=== PATIENT | female | born 2000 | race Caucasian/White ===

== ENCOUNTER 2020-05-23 03:57 | Emergency (ER) | payer BC ==
--- OUTSIDE RECORDS SUMMARY | 2020-05-23 03:59 | XMS REPORT | Summary of Care ---
:2000 Author Organization [address] [address] Care Team Providers Name Role Phone Pcp, Patient Does Not Have A Primary Care Provider +1-000-00 0-0000 Reason for Visit Reason Comments Rx Concern/Question Encounter Details Date Type Department Care Team Description 04/30/2020 Telephone [facility] Kathleen Bloom RD Rx Concern/Question Specialties [address] [facility] [phone] [address] [place] [phone] Allergies No Known Allergiesdocumented as of this encounter (statuses as of 04/30/2020) Medications Medication Sig Dispensed Refills Start Date End Date Status KUVAN 100 mg 0 08/17/2015 Active disintegrating tablet KUVAN 500 mg PwPk DISSOLVE 2 30 Packet 10 08/30/2018 Active PACKETS (1000MG) IN 4-8 OZ WATER OR APPLE JUICE. TAKE BY MOUTH ONCE DAILY WITH FOOD. TOTAL DAILY DOSAGE (WITH 100MG PACKETS) OF 1 KUVAN 100 mg PwPk DISSOLVE 2-100MG 60 Packet 10 08/30/2018 Active PACKETS AND 2-500MG PACKETS ([id number]) IN 4-8 OZ WATER OR APPLE JUICE. TAKE BY MOUTH ONCE DAILY WITH FOOD. documented as of this encounter (statuses as of 04/30/2020) Active Problems Not on filedocumented as of this encounter (statuses as of 04/30/2020) Social History Tobacco Use Types Packs/Day Years Used Date Never Assessed Sex Assigned at Date Recorded Not on file documented as of this encounter Last Filed Vital Signs Not on filedocumented in this encounter Miscellaneous Notes Telephone Encounter - Kathleen Lipscomb RD - 04/30/2020 4:05 PM CSTReceived a call from patient's Mom inquiring about generic Kuvan. She is concerned since Aspen is so picky that she will notice subtle changes. She is asking if there is a difference in taste or consistency. I informed her that I could not say for sure but we are happy to request brand name as long as insurance allows. Communicated new Rx to her [facility]. Pt also received the sample of medical food I sent her (PKU Sphere Liquid) but hasn't tried it. Mom or Aspen will f/u if she likes it and is interested in incorporating it into her regimen. Kathleen Lipscomb MS, RD, LD Metabolic Dietitian documented in this encounter Plan of Treatment Health Maintenance Due Date Last Done Comments VARICELLA VACCINES (1 of 2 - 2-dose 2001 childhood series) MENINGOCOCCAL B VACCINES (1 of 2 - 2010 Risk Bexsero 2-dose series) HPV VACCINES (1 - 2-dose series) 09/30/2011 Depression Screening 2012 WELL CARE VISIT: 12-21 YEARS 2012 (yearly) CHLAMYDIA SCREENING 2016 DTaP,Tdap,and Td Vaccines (1 - 09/30/2019 Tdap) INFLUENZA VACCINE (#1) 2020 MENINGOCOCCAL VACCINE Aged Out No longer eligible based on patient's age to complete this topic PNEUMOCOCCAL 0-64 YEARS COMBINED Aged Out No longer eligible based on SERIES patient's age to complete this topic documented as of this encounter Results Not on filedocumented in this encounter Insurance Payer Benefit Plan Subscriber ID Effective Dates Phone Address Type / Group [facility] [id number] 2014-Nikos [phone] [address] PPO/POS [place] t 7 [id number] [place] [address] documented as of this encounter
--- OUTSIDE RECORDS SUMMARY | 2020-05-23 03:59 | XMS REPORT | Continuity of Care Document ---
:2000 Author Organization [facility] t Address [address] [place] [address] Care Team Providers Name Role Phone Vice MARIE Attending Clinician Marie Bliss MD Attending Clinician Problems This patient has no known problems. Allergies, Adverse Reactions, Alerts This patient has no known allergies or adverse reactions. Medications This patient has no known medications. Procedures This patient has no known procedures. Encounters Start End Encounter Admission Attending Care Care Encounter Source Date/Time Date/Time Type Type Clinicians Facility Department ID 2020-04-30 2020-04-30 Telephone Vice [facility] [id number] 00:00:00 00:00:00 Kathleen SPECIALTY [id number] [place] [id number] [place] [phone] [id number] 2020-04-02 2020-04-02 Telephone Cortes Bliss [facility] [id number] 00:00:00 00:00:00 W SPECIALTY [id number] [place] [id number] [place] [id number] Results This patient has no known results.
--- OUTSIDE RECORDS SUMMARY | 2020-05-23 03:59 | XMS REPORT | Summary of Care ---
:2000 Author Organization [facility] - Health Address [address] [place] [address] Care Team Providers Name Role Phone Pcp, Patient Does Not Have A Primary Care Provider +1-000-00 0-0000 Encounter Details Date Type Department Care Team Description 03/30/2020 Orders Only [facility] Doctor Unassigned, No [address] [place] [address] [address] [place] [address] Allergies No Known Allergiesdocumented as of this encounter (statuses as of 04/02/2020) Medications Medication Sig Dispensed Refills Start Date [...] 10 08/30/2018 Active PACKETS AND 2-500MG PACKETS ([id number]) IN 4-8 OZ WATER OR APPLE JUICE. TAKE BY MOUTH ONCE DAILY WITH FOOD. documented as of this encounter (statuses as of 04/02/2020) Active Problems Not on filedocumented as of this encounter (statuses as of 04/02/2020) Social History Tobacco Use Types Packs/Day Years Used Date Never Assessed Sex Assigned at Date Recorded Not on file documented as of this encounter Last Filed Vital Signs Not on filedocumented in this encounter Plan of Treatment Health [...] this topic documented as of this encounter Procedures Procedure Name Priority Date/Time Associated Diagnosis Comme nts TD LAB RESULTS ([facility]) Routine 03/30/2020 12:01 AM CDT documented in this encounter Results TD LAB RESULTS ([facility]) (03/30/2020 12:01 AM CDT) Specimen Performing Organization Address City/State/Zipcode Phone Number HIM documented in this encounter Insurance Payer Benefit Plan Subscriber ID Effective Dates Phone Address Type / Group [employer] [place] [employer] [place] [id number] 2014-Nikos [phone] [address] PPO/POS [place] t 7 [id number] [place] [address] documented as of this encounter
--- OUTSIDE RECORDS SUMMARY | 2020-05-23 03:59 | XMS REPORT | Summary of Care ---
:2000 Author Organization [facility] Address [address] [place] [address] Care Team Providers Name Role Phone Pcp, Patient Does Not Have A Primary Care Provider +1-000-00 0-0000 Reason for Visit Reason Comments Lab Results Encounter Details Date Type Department Care Team Description 04/02/2020 Telephone [facility] Pedi Specialties Cortes Bliss MD Lab Results [facility] ty [address] [facility] [address] [facility] [address] [place] [address] [place], [place] [phone] Allergies No Known Allergiesdocumented as of this [...] 10 08/30/2018 Active PACKETS AND 2-500MG PACKETS ([id number]) IN 4-8 OZ WATER OR APPLE JUICE. [...] this encounter Miscellaneous Notes Telephone Encounter - Kane Garcia LVN - 04/02/2020 3:24 PM CDTTDH lab results scanned to patient's chart. documented in this encounter Plan of Treatment [...] Dates Phone Address Type / Group BCBS [facility] [id number] 2014-Nikos [phone] [address] PPO/POS [place] t 7 [id number] [place] [address] documented as of this encounter
--- OUTSIDE RECORDS SUMMARY | 2020-05-23 03:59 | XMS REPORT | Summary of Care ---
:2000 Author Organization [facility] Address [address] [place] [address] Care Team Providers Name Role Phone Pcp, Patient Does Not Have A Primary Care Provider +1-000-00 0-0000 Reason for Visit Reason Comments Lab Results Encounter Details Date Type Department Care Team Description 04/02/2020 Telephone [facility] Pedi Specialties Cortes Bliss MD Lab Results [facility] ty [address] [facility] [address] [facility] [address] [place] [address] [place], [place] [phone] Allergies No Known Allergiesdocumented as of this encounter (statuses as of 04/03/2020) Medications Medication Sig Dispensed Refills Start Date [...] 10 08/30/2018 Active PACKETS AND 2-500MG PACKETS ([id number]) IN 4-8 OZ WATER OR APPLE JUICE. TAKE BY MOUTH ONCE DAILY WITH FOOD. documented as of this encounter (statuses as of 04/03/2020) Active Problems Not on filedocumented as of this encounter (statuses as of 04/03/2020) Social History Tobacco Use Types Packs/Day Years Used Date Never Assessed Sex Assigned at Date Recorded Not on file documented as of this encounter Last Filed Vital Signs Not on filedocumented in this encounter Miscellaneous Notes Telephone Encounter - Kathleen Lipscomb RD - 04/03/2020 11:46 AM CDTContacted patient/patient's parents to report the results of the most recent home Phe levels received from the state lab. Collection Date: 03/30/20 Phe: 1.5 mg/dL Tyrosine: 0.8 mg/dL Kathleen Lipscomb MS, RD, LD Metabolic Dietitian elephone Encounter - Kane Garcia LVN - 04/02/2020 [...] Phone Address Type / Group BC[facility] [id number] 2014-Nikos [phone] [address] PPO/POS [place] t 7 [id number] [place] [address] documented as of this encounter
[2020-05-23 04:15] LABS: Urine Blood 2+ (NEG); Urine Glucose NEGATIVE (NEG); Urine Protein 1+ (NEG); Urine Specific Gravity >1.030 (1.005-1.030); Urine pH 5.5 (5.0-7.0)
[2020-05-23] MEDS ORDERED: NA CHLORIDE 0.9% 1,000 ML ONE (04:26)
[2020-05-23] MEDS ORDERED: KETOROLAC 30 MG/ML INJ ONE (04:26)
[2020-05-23 04:27] LABS: Basophils % 0.5 % (0-1.3); Hematocrit 35.1 % (36.0-45.0); RBC Red Blood Cell Count 3.74 M/uL (3.86-4.86)
[2020-05-23] MEDS ORDERED: ONDANSETRON 4 MG/2 ML VIAL ONE (04:35)
[2020-05-23 04:46] LABS: ALT/SGPT 16 U/L (12-78); AST/SGOT 12 U/L (15-37); Alkaline Phosphatase 75 U/L (45-117); BUN Blood Urea Nitrogen 9 mg/dL (7-18); Bicarbonate 21 mmol/L (21-32); Bilirubin Direct 0.2 mg/dL (0-0.2); Bilirubin Total 0.4 mg/dL (0.2-1.0); Glucose Level 96 mg/dL (74-106); Lipase 78 U/L (73-393); Potassium 3.3 mmol/L (3.5-5.1); Protein, Total 7.5 g/dL (6.4-8.2); Sodium Level 142 mmol/L (136-145)
[2020-05-23] MEDS ORDERED: MORPHINE 4 MG/ML SYR ONE (05:00)
--- NOTE | 2020-05-23 06:46 | EDPHYS ---
Physician Documentation [facility] Name: Aspen Mills Age: 19 yrs Sex: Female : 2000 Arrival Date: 05/23/2020 Time: 03:57 Bed 13 Private MD: ED Physician Tim Valiente HPI: 05/23 05:48 This 19 yrs old Female presents to ER via Ambulatory with complaints of Flank tw4 Pain. 05:48 The patient complains of pain in the left mid back. The pain radiates. Onset: The tw4 symptoms/episode began/occurred today. Modifying factors: The symptoms are alleviated by nothing. the symptoms are aggravated by nothing. Associated signs and symptoms: The patient has no apparent associated signs or symptoms. Severity of pain: At its worst the pain was moderate in the emergency department the pain is unchanged. The patient has not experienced similar symptoms in the past. 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 - Social history:: Smoking status: Patient denies any tobacco usage or history of. ROS: 05:48 Constitutional: Negative for fever, chills, and weight loss, Eyes: Negative for injury, tw4 pain, redness, and discharge, Cardiovascular: Negative for chest pain, palpitations, and edema, Respiratory: Negative for shortness of breath, cough, wheezing, and pleuritic chest pain, Abdomen/GI: Negative for abdominal pain, nausea, vomiting, diarrhea, and constipation. 05:48 MS/Extremity: Negative for injury and deformity, Skin: Negative for injury, rash, and discoloration, Neuro: Negative for headache, weakness, numbness, tingling, and seizure. 05:48 Back: Positive for flank pain, on the left. Exam: 05:48 Constitutional: This is a well developed, well nourished patient who is awake, alert, tw4 and in no acute distress. Head/Face: Normocephalic, atraumatic. Chest/axilla: Normal chest wall appearance and motion. Nontender with no deformity. No lesions are appreciated. Cardiovascular: Regular rate and rhythm with a normal S1 and S2. No gallops, murmurs, or rubs. Normal PMI, no JVD. No pulse deficits. Respiratory: Lungs have equal breath sounds bilaterally, clear to auscultation and percussion. No rales, rhonchi or wheezes noted. No increased work of breathing, no retractions or nasal flaring. Abdomen/GI: Soft, non-tender, with normal bowel sounds. No distension or tympany. No guarding or rebound. No evidence of tenderness throughout. Skin: Warm, dry with normal turgor. Normal color with no rashes, no lesions, and no evidence of cellulitis. MS/ Extremity: Pulses equal, no cyanosis. Neurovascular intact. Full, normal range of motion. Neuro: Awake and alert, GCS 15, oriented to person, place, time, and situation. Cranial nerves II-XII grossly intact. Motor strength 5/5 in all extremities. Sensory grossly intact. Cerebellar exam normal. Normal gait. 05:48 Back: pain, that is moderate, ROM is normal, normal spinal alignment noted, CVA tenderness, that is moderate, is noted on the left. Vital Signs: 04:15 BP 125 / 82; Pulse 94; Resp 19; Temp 98.7; Pulse Ox 100% ; Weight 63.5 kg; Height 5 ft. ea 6 in. (167.64 cm); Pain 9/10; 06:09 BP 118 / 74; Pulse 92; Resp 18; Pulse Ox 100% ; Pain 2/10; ea 04:15 Body Mass Index 22.60 (63.50 kg, 167.64 cm) ea MDM: 04:05 Patient medically screened. tw4 06:46 Differential diagnosis: nephrolithiasis, pyelonephritis. Data reviewed: vital signs, tw4 nurses notes, lab test result(s), CBC, electrolytes, hepatic panel, radiologic studies, CT scan. Data interpreted: Pulse oximetry: Interpretation: normal. Counseling: I had a detailed discussion with the patient and/or guardian regarding: the historical points, exam findings, and any diagnostic results supporting the discharge/admit diagnosis, radiology results. Medication response: Toradol partially relieved the patient's pain. Medication response: morphine relieved the patient's pain. Symptoms have resolved. Response to treatment: and as a result, I will discharge patient. Special discussion: Based on the patient's Hx, exam, and Dx evaluation, there is no indication for emergent surgery or inpatient Tx. It is understood by the patient/guardian that if the Sx's persist or worsen they need to return immediately for re-evaluation. I discussed with the patient/guardian in detail that at this point there is no indication for admission to the hospital. It is understood, however, that if the symptoms persist or worsen the patient needs to return immediately for re-evaluation. 05/23 04:11 Order name: Basic Metabolic Panel; Complete Time: 04:47 05/23 04:47 Interpretation: Normal except: K 3.3; CL 113. 05/23 04:11 Order name: CBC with Diff; Complete Time: 04:47 05/23 04:47 Interpretation: Abnormal: RBC 3.74; HGB 11.9; HCT 35.1. 05/23 04:11 Order name: Hepatic Function; Complete Time: 04:47 05/23 04:47 Interpretation: Abnormal: AST 12. 05/23 04:11 Order name: Lipase; Complete Time: 04:48 05/23 04:48 Interpretation: Within normal limits: LIP 78. 05/23 04:12 Order name: Urine --Ancillary (enter results); Complete Time: 04:46 tt05/23 04:46 Interpretation: Abnormal: USPGR >1.030. 05/23 04:12 Order name: Urine Dipstick--Ancillary (enter results); Complete Time: 04:48 05/23 04:48 Interpretation: Normal except: UPROT 1+; UBLD 2+. 05/23 04:11 Order name: IV Saline Lock; Complete Time: 04:24 05/23 04:11 Order name: Labs collected and sent; Complete Time: 04:24 05/23 04:12 Order name: CT Stone Protocol Administered Medications: 04:20 Drug: TORadol 30 mg Route: IVP; Site: right antecubital; ea 04:49 Follow up: Response: No adverse reaction; Pain is unchanged, physician notified ea 04:20 Drug: NS 0.9% 1000 ml Route: IV; Rate: 1 bolus; Site: right antecubital; ea 07:04 Follow up: Response: No adverse reaction; IV Status: Completed infusion; IV Intake: ea 1000ml 04:24 Drug: Zofran (Ondansetron) 4 mg Route: IVP; Site: right antecubital; ea 06:10 Follow up: Response: No adverse reaction ea 04:49 Drug: morphine 4 mg {Note: RASS 0.} Route: IVP; Site: right antecubital; ea 06:11 Follow up: Response: No adverse reaction; Pain is decreased; RASS: Alert and Calm (0) ea Disposition: 05/23/20 06:46 Discharged to Home. Impression: Calculus of ureter. - Condition is Stable. - Discharge Instructions: Renal Colic, Kidney Stones, [id number]. - Prescriptions for Ibuprofen 800 mg Oral Tablet - take 1 tablet by ORAL route every 8 hours As needed take with food; 30 tablet. Tylenol- Codeine #3 300-30 mg Oral Tablet - take 2 tablet by ORAL route every 6 hours As needed; 30 tablet. Zofran 4 mg Oral Tablet - take 1 tablet by ORAL route every 12 hours As needed; 6 tablet. Flomax 0.4 mg Oral Capsule, Sust. Release 24 hr - take 1 capsule by ORAL route once daily 1/2 hour following the same meal each day; 30 capsule. - Medication Reconciliation Form, Thank You Letter, Antibiotic Education, Prescription Opioid Use form. - Follow up: Private Physician; When: Upon discharge from the Emergency Department; Reason: Recheck today's complaints, Continuance of care, Re-evaluation by your physician. Follow up: Domenic Mccray MD; When: Upon discharge from the Emergency Department; Reason: Recheck today's complaints, Continuance of care, Re-evaluation by your physician. Follow up: Hung Drew MD; When: Upon discharge from the Emergency Department; Reason: Recheck today's complaints, Continuance of care, Re-evaluation by your physician. - Problem is new. - Symptoms have improved. Signatures: Dispatcher [employer] Haily Chambers RN RN Tim Mcpherson MD MD tw4 Corrections: (The following items were deleted from the chart) 07:05 06:46 05/23/2020 06:46 Discharged to Home. Impression: Calculus of ureter. Condition is ea Stable. Forms are Medication Reconciliation Form, Thank You Letter, Antibiotic Education, Prescription Opioid Use. Follow up: Private Physician; When: Upon discharge from the Emergency Department; Reason: Recheck today's complaints, Continuance of care, Re-evaluation by your physician. Follow up: Domenic Mccray; When: Upon discharge from the Emergency Department; Reason: Recheck today's complaints, Continuance of care, Re-evaluation by your physician. Follow up: Hung Drew; When: Upon discharge from the Emergency Department; Reason: Recheck today's complaints, Continuance of care, Re-evaluation by your physician. Problem is new. Symptoms have improved. tw4
--- NOTE | 2020-05-23 06:46 | ER ---
Nurse's Notes [facility] Name: Aspen Mills Age: 19 yrs Sex: Female : 2000 Arrival Date: 05/23/2020 Time: 03:57 Bed 13 Private MD: Diagnosis: Calculus of ureter Presentation: 05/23 04:15 Initial Sepsis Screen: Does the patient meet any 2 criteria? No. Patient's initial ea sepsis screen is negative. Does the patient have a suspected source of infection? No. Patient's initial sepsis screen is negative. Risk Assessment: Do you want to hurt yourself or someone else? Patient reports no desire to harm self or others. Onset of symptoms was May 23, 2020. 04:15 Acuity: [place]ERE[place] 3 ea 04:15 Chief complaint: Patient states: Reports left flank pain that started about thirty ea minutes ago, pt reports pain woke her up from her sleep. Coronavirus screen: At this time, the client does not indicate any symptoms associated with coronavirus-19. 04:15 Method Of Arrival: Ambulatory ea 04:25 Ebola Screen: No symptoms or risks identified at this time. 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 - Social history:: Smoking status: Patient denies any tobacco usage or history of. Screenin:25 Abuse screen: Denies threats or abuse. Nutritional screening: No deficits noted. ea Tuberculosis screening: No symptoms or risk factors identified. Fall Risk IV access (20 points). Assessment: 04:15 General: Appears uncomfortable, Behavior is appropriate for age. General: Behavior is ea restless. Pain: Complains of pain in left flank pain. Neuro: Level of Consciousness is awake, alert, obeys commands, Oriented to person, place, time. Cardiovascular: Patient's skin is warm and dry. Respiratory: Airway is patent Respiratory effort is even, unlabored, Respiratory pattern is regular, symmetrical. : Denies burning with urination. Derm: Skin is dry, Skin is pale, Skin temperature is warm. 06:08 Reassessment: Patient and/or family updated on plan of care and expected duration. Pain ea level reassessed. Patient is alert, oriented x 3, equal unlabored respirations, skin warm/dry/pink. 07:03 Reassessment: Patient and/or family updated on plan of care and expected duration. Pain ea level reassessed. Patient is alert, oriented x 3, equal unlabored respirations, skin warm/dry/pink. Discharge instruction given to patient, verbalized the understanding of instruction. Pt left ED ambulatory tolerating well. Vital Signs: 04:15 BP 125 / 82; Pulse 94; Resp 19; Temp 98.7; Pulse Ox 100% ; Weight 63.5 kg; Height 5 ft. ea 6 in. (167.64 cm); Pain 9/10; 06:09 BP 118 / 74; Pulse 92; Resp 18; Pulse Ox 100% ; Pain 2/10; ea 04:15 Body Mass Index 22.60 (63.50 kg, 167.64 cm) ea ED Course: 03:57 Patient arrived in ED. am2 04:05 Tim Valiente MD is Attending Physician. tw4 04:18 Haily Frost RN is Primary Nurse. ea 04:20 Inserted saline lock: 20 gauge in right antecubital area, using aseptic technique. ea Blood collected. 04:25 Patient has correct armband on for positive identification. Bed in low position. Call ea light in reach. Pulse ox on. NIBP on. 04:26 Triage completed. ea 04:27 Arm band placed on right wrist. Patient placed in an exam room, on a stretcher, on ea pulse oximetry. 05:56 CT Stone Protocol In Process Unspecified. EDMS 06:45 Domenic Mccray MD is Referral Physician. tw4 06:45 Hung Drew MD is Referral Physician. tw4 06:58 IV discontinued, intact, bleeding controlled, No redness/swelling at site. Pressure ea dressing applied. 07:03 No provider procedures requiring assistance completed. ea Administered Medications: 04:20 Drug: TORadol 30 mg Route: IVP; Site: right antecubital; ea 04:49 Follow up: Response: No adverse reaction; Pain is unchanged, physician notified ea 04:20 Drug: NS 0.9% 1000 ml Route: IV; Rate: 1 bolus; Site: right antecubital; ea 07:04 Follow up: Response: No adverse reaction; IV Status: Completed infusion; IV Intake: ea 1000ml 04:24 Drug: Zofran (Ondansetron) 4 mg Route: IVP; Site: right antecubital; ea 06:10 Follow up: Response: No adverse reaction ea 04:49 Drug: morphine 4 mg {Note: RASS 0.} Route: IVP; Site: right antecubital; ea 06:11 Follow up: Response: No adverse reaction; Pain is decreased; RASS: Alert and Calm (0) ea Intake: 07:04 IV: 1000ml; Total: 1000ml. ea Outcome: 06:46 Discharge ordered by tw4 07:04 Discharged to home ambulatory, with family. ea 07:04 Condition: stable 07:04 Discharge instructions given to patient, Instructed on discharge instructions, follow up and referral plans. medication usage, Demonstrated understanding of instructions, follow-up care, medications, Prescriptions given X 4. 07:05 Patient left the ED. ea Signatures: Dispatcher [employer] Maria Antonia Sequeira Elena, RN RN Tim Mcpherson MD MD tw4 Corrections: (The following items were deleted from the chart) 06:11 06:11 Response: No adverse reaction; Pain is decreased mc bentley
--- NOTE | 2020-05-26 09:03 | RAD REPORT ---
EXAM DESCRIPTION: CT - Stone Protocol - 05/23/2020 6:46 am CLINICAL HISTORY: Acute left flank pain COMPARISON: None. TECHNIQUE: Axial unenhanced CT imaging of the abdomen and pelvis performed. Reformatted coronal and sagittal images reviewed. A dose reduction technique was utilized with automated exposure control according to patient size. FINDINGS: Clear lung bases. Heart is normal in size. Normal liver, gallbladder, spleen, pancreas, adrenal glands, and right kidney. There is a 3 mm nono bstructing left renal pelvic stone. There is mild dilatation of the left renal pelvis. AP pelvis is 1.5 cm. Minimal left perinephric edema. Mild diffuse dilatation of the left ureter secondary t o a 6 mm distal left ureteral stone. Normal caliber aorta and inferior vena cava. No retroperitoneal lymphadenopathy. Unremarkable sto mach and small bowel loops. Normal appendix is present in the right lower quadrant. Unremarkable colon. No ascites or free air. The bladder appears normal. No bladder stone. Normal uterus and ovaries. No pelvic adenopathy o r free fluid Normal lumbosacral alignment. Intact bony pelvis. Normal hips. IMPRESSION: 1. 6 mm distal left ureteral stone with mild left hydronephrosis and slight obstructiv e uropathy. Nonobstructing 3 mm left renal pelvis is also present. Electronically signed by: Catalina Adams DO 05/23/2020 6:14 AM [employer] Due to temporary technical issues with the PACS/Fluency reporting system, reports are being signed by the in house radiologist without review as a courtesy to ensure prompt reporting. The interpreting r adiologist is fully responsible for the content of the report.
[2020-05-27 13:09] VITALS: TEMP 98.7; O2SAT 100
[2020-05-27 13:10] VITALS: BP 118/74
== END 2020-05-23 07:05 | disposition home or self-care (01) ==
LOC: ER 03:57
DX: N20.1 Calculus of ureter (principal)
CPT/HCPCS: 96361; 85025; 80048; 36415; 81025; 80076; 81003; 83690; 76377; 74176; 96375; 96374; 99284; J7030; J2405

== ENCOUNTER 2020-06-29 23:21 | Emergency (ER) | payer BC ==
--- OUTSIDE RECORDS SUMMARY | 2020-06-29 23:23 | XMS REPORT | Continuity of Care Document ---
:2000 Author Organization [facility] t Address [address] [place] [address] Care Team Providers Name Role Phone Vice [...] Facility Department ID 2020-04-30 2020-04-30 Telephone [facility] [id number] 00:00:00 00:00:00 Kathleen [facility] [id number] [place] [id number] [place] [id number] 2020-04-02 2020-04-02 Telephone [facility] [id number] 00:00:00 00:00:00 Marie SPECIAL[facility] [id number] [place] [id number] [place] [id number] Results This patient has no known results.
[2020-06-30 00:46] LABS: Bilirubin Direct 0.2 mg/dL (0-0.2); Bilirubin Total 0.5 mg/dL (0.2-1.0); Potassium 3.5 mmol/L (3.5-5.1); Protein, Total 7.7 g/dL (6.4-8.2)
[2020-06-30] MEDS ORDERED: NA CHLORIDE 0.9% 1,000 ML ONE (00:57)
[2020-06-30 00:59] LABS: Urine Blood 1+ (NEG); Urine Glucose NEGATIVE (NEG); Urine Protein 1+ (NEG); Urine Specific Gravity >1.030 (1.005-1.030); Urine pH 5.5 (5.0-7.0)
[2020-06-30 00:59] LABS: Absolute Lymphocytes (CBC) 1.1 K/uL (0.7-4.9); Basophils % 0.8 % (0-1.3); Hematocrit 35.1 % (36.0-45.0); Lymphocytes % 24.2 % (15.3-44.8); MPV 9.5 fL (7.6-11.3); RBC Red Blood Cell Count 3.78 M/uL (3.86-4.86)
[2020-06-30 01:09] LABS: Urine Bacteria <20 /HPF (<20)
--- NOTE | 2020-06-30 01:09 | EDPHYS ---
Physician Documentation [facility] Name: Aspen Mills Age: 19 yrs Sex: Female : 2000 Arrival Date: 06/29/2020 Time: 23:23 Bed 13 Private MD: Ramon Deal W ED Physician Vicente Hoffmann HPI: 06/30 00:22 This 19 yrs old Female presents to ER via Ambulatory with complaints of Flank ma2 Pain - left. 00:22 The patient complains of pain in the left mid back. Onset: The symptoms/episode ma2 began/occurred gradually, 1 day(s) ago. Associated signs and symptoms: Pertinent negatives: fever, hematuria, pain radiating to the lower extremities. Severity of pain: At its worst the pain was moderate in the emergency department the pain has improved. The patient has experienced similar episodes in the past. Historical: - Home Meds: 06/29 23:36 Kuvan Oral for Phenylketonuria [Active]; dm5 - PSHx: 23:36 None; dm5 - Immunization history:: Adult Immunizations up to date. - Social history:: Smoking status: Patient denies any tobacco usage or history of. - Family history:: not pertinent. ROS: 06/30 00:22 Constitutional: Negative for fever, chills, and weight loss. ma2 All other systems are negative. Exam: 00:22 Constitutional: This is a well developed, well nourished patient who is awake, alert, ma2 and in no acute distress. ENT: Nares patent. No nasal discharge, no septal abnormalities noted. Tympanic membranes are normal and external auditory canals are clear. Oropharynx with no redness, swelling, or masses, exudates, or evidence of obstruction, uvula midline. Mucous membranes moist. Chest/axilla: Normal chest wall appearance and motion. Nontender with no deformity. No lesions are appreciated. Cardiovascular: Regular rate and rhythm with a normal S1 and S2. No gallops, murmurs, or rubs. Normal PMI, no JVD. No pulse deficits. Respiratory: Lungs have equal breath sounds bilaterally, clear to auscultation and percussion. No rales, rhonchi or wheezes noted. No increased work of breathing, no retractions or nasal flaring. Abdomen/GI: Soft, non-tender, with normal bowel sounds. No distension or tympany. No guarding or rebound. No evidence of tenderness throughout. Vital Signs: 06/29 23:33 BP 116 / 74; Pulse 75; Resp 18; Temp 98.5(O); Pulse Ox 100% on R/A; Weight 62.6 kg; dm5 Height 5 ft. 6 in. (167.64 cm); Pain 4/10; 06/30 01:00 BP 111 / 66; Pulse 63; Resp 17; Pulse Ox 98% on R/A; jb4 06/29 23:33 Body Mass Index 22.27 (62.60 kg, 167.64 cm) dm5 MDM: 06/29 23:36 Patient medically screened. fl06/30 00:22 Differential diagnosis: nephrolithiasis, pyelonephritis, UTI, pancreatitis. Data ma2 reviewed: vital signs, nurses notes. Counseling: I had a detailed discussion with the patient and/or guardian regarding: the historical points, exam findings, and any diagnostic results supporting the discharge/admit diagnosis, the presence of at least one elevated blood pressure reading (>120/80) during this emergency department visit, the need for outpatient follow up. 01:07 Response to treatment: declined rx in er . fl06/29 23:51 Order name: Basic Metabolic Panel; Complete Time: 01:07 [facility] 06/29 23:51 Order name: CBC with Diff; Complete Time: 01:07 [facility] 06/29 23:51 Order name: Hepatic Function; Complete Time: 01:07 [facility] 06/29 23:51 Order name: Lipase; Complete Time: :07 [facility] 06/29 23:51 Order name: Urine Microscopic Only [facility] 06/30 00:11 Order name: Urine --Ancillary (enter results); Complete Time: 01:07 tt3 06/29 23:51 Order name: Urine Test (obtain specimen); Complete Time: 00:11 [facility] 06/29 23:51 Order name: CT Stone Protocol [facility] 06/29 23:51 Order name: IV Saline Lock; Complete Time: 00:40 [facility] 06/29 23:51 Order name: NPO; Complete Time: 00:40 [facility] 06/29 23:51 Order name: Urine Dipstick-Ancillary (obtain specimen); Complete Time: 00:11 fl 06/30 00:11 Order name: Urine Dipstick--Ancillary (enter results); Complete Time: 01:07 tt3 06/30 01:11 Order name: Urine Culture EDMS Administered Medications: 00:45 Drug: NS 0.9% 1000 ml Route: IV; Rate: 1000 ml; Site: right antecubital; jb4 01:28 Follow up: Response: No adverse reaction; IV Status: Completed infusion; IV Intake: jb4 800ml Disposition: 06/30/20 01:08 Discharged to Home. Impression: Calculus of lower urinary tract - left. - Condition is Stable. - Discharge Instructions: Kidney Stones, [id number], Dietary Guidelines to Help Prevent Kidney Stones. - Prescriptions for Zofran 4 mg Oral Tablet - take 1 tablet by ORAL route every 12 hours As needed; 20 tablet. Flomax 0.4 mg Oral Capsule, Sust. Release 24 hr - take 1 capsule by ORAL route once daily 1/2 hour following the same meal each day; 30 capsule. Diclofenac Sodium 75 mg Oral Tablet Sustained Release - take 1 tablet by ORAL route 2 times per day; 30 tablet. - Medication Reconciliation Form, Thank You Letter, Antibiotic Education, Prescription Opioid Use form. - Follow up: Domenic Mccray MD; When: Tomorrow; Reason: If symptoms return, Continuance of care. Signatures: Dispatcher [employer] EDID Lalita Corea RN RN dm5 Carlo Leon RN RN jb4 Vicente Hoffmann MD MD ma2 Corrections: (The following items were deleted from the chart) 01:28 01:08 06/30/2020 01:08 Discharged to Home. Impression: Calculus of lower urinary tract jb4 - left. Condition is Stable. Prescriptions for Zofran 4 mg Oral Tablet - take 1 tablet by ORAL route every 12 hours As needed; 20 tablet, Flomax 0.4 mg Oral Capsule, Sust. Release 24 hr - take 1 capsule by ORAL route once daily 1/2 hour following the same meal each day; 30 capsule, Diclofenac Sodium 75 mg Oral Tablet Sustained Release - take 1 tablet by ORAL route 2 times per day; 30 tablet. and Forms are Medication Reconciliation Form, Thank You Letter, Antibiotic Education, Prescription Opioid Use. Follow up: Domenic Mccray; When: Tomorrow; Reason: If symptoms return, Continuance of care. ma2
--- NOTE | 2020-06-30 01:09 | ER ---
Nurse's Notes [facility] Name: Aspen Mills Age: 19 yrs Sex: Female : 2000 Arrival Date: 06/29/2020 Time: 23:23 Bed 13 Private MD: Ramon Deal W Diagnosis: Calculus of lower urinary tract-left Presentation: 06/29 23:33 Chief complaint: Patient states: pt states left flank pain started at approximately dm5 2225 this evening. Pt states that she had a kidney stone about a month ago. Coronavirus screen: Client denies travel out of the [place] in the last 14 days. At this time, the client does not indicate any symptoms associated with coronavirus-19. Ebola Screen: Patient negative for fever greater than or equal to 101.5 degrees Fahrenheit, and additional compatible Ebola Virus Disease symptoms Patient denies exposure to infectious person. Patient denies travel to an Ebola-affected area in the 21 days before illness onset. No symptoms or risks identified at this time. Initial Sepsis Screen: Does the patient meet any 2 criteria? No. Patient's initial sepsis screen is negative. Does the patient have a suspected source of infection? No. Patient's initial sepsis screen is negative. Risk Assessment: Do you want to hurt yourself or someone else? Patient reports no desire to harm self or others. Onset of symptoms was June 29, 2020. 23:33 Acuity: TERELL 3 dm5 23:33 Method Of Arrival: Ambulatory dm5 Triage Assessment: 23:36 General: Appears in no apparent distress. uncomfortable, Behavior is calm, cooperative. dm5 Pain: Complains of pain in left flank Pain currently is 4 out of 10 on a pain scale. EENT: No signs and/or symptoms were reported regarding the EENT system. Neuro: Level of Consciousness is awake, alert, obeys commands, Oriented to person, place, time. Cardiovascular: No deficits noted. Respiratory: Airway is patent Respiratory effort is even, unlabored, Respiratory pattern is regular, symmetrical. GI: No signs and/or symptoms were reported involving the gastrointestinal system. Derm: Skin is pink, warm \T\ dry. Historical: - Home Meds: 23:36 Kuvan Oral for Phenylketonuria [Active]; dm5 - PSHx: 23:36 None; dm5 - Immunization history:: Adult Immunizations up to date. - Social history:: Smoking status: Patient denies any tobacco usage or history of. - Family history:: not pertinent. Screenin:45 Abuse screen: Denies threats or abuse. Nutritional screening: No deficits noted. jb4 Tuberculosis screening: No symptoms or risk factors identified. Fall Risk None identified. Assessment: 23:45 General: Appears in no apparent distress. uncomfortable, Behavior is calm, cooperative, jb4 appropriate for age. Pain: Complains of pain in left flank. Neuro: Level of Consciousness is awake, alert, obeys commands, Oriented to person, place, time, situation. Cardiovascular: Patient's skin is warm and dry. Respiratory: Airway is patent Respiratory effort is even, unlabored, Respiratory pattern is regular, symmetrical. GI: No signs and/or symptoms were reported involving the gastrointestinal system. : No signs and/or symptoms were reported regarding the genitourinary system. EENT: No signs and/or symptoms were reported regarding the EENT system. Derm: Skin is intact, Skin is pink, warm \T\ dry. Musculoskeletal: Circulation, motion, and sensation intact. Range of motion: intact in all extremities. 06/30 01:00 Reassessment: Patient appears in no apparent distress at this time. Patient and/or jb4 family updated on plan of care and expected duration. Pain level reassessed. Patient is alert, oriented x 3, equal unlabored respirations, skin warm/dry/pink. Vital Signs: 06/29 23:33 BP 116 / 74; Pulse 75; Resp 18; Temp 98.5(O); Pulse Ox 100% on R/A; Weight 62.6 kg; dm5 Height 5 ft. 6 in. (167.64 cm); Pain 4/10; 06/30 01:00 BP 111 / 66; Pulse 63; Resp 17; Pulse Ox 98% on R/A; jb4 06/29 23:33 Body Mass Index 22.27 (62.60 kg, 167.64 cm) 5 ED Course: 06/29 23:23 Patient arrived in ED. am2 23:23 Ramon Deal MD is Private Physician. am2 23:35 Triage completed. dm5 23:36 Vicente Hoffmann MD is Attending Physician. ma2 23:36 Arm band placed on Patient placed in an exam room, on a stretcher. dm5 23:45 Patient has correct armband on for positive identification. Bed in low position. Call jb4 light in reach. Side rails up X 1. Pulse ox on. NIBP on. 06/30 00:26 CT Stone Protocol In Process Unspecified. EDMS 00:40 Carlo Leon, RN is Primary Nurse. jb4 01:08 Domenic Mccray MD is Referral Physician. ma2 01:27 No provider procedures requiring assistance completed. IV discontinued, intact, jb4 bleeding controlled, No redness/swelling at site. Pressure dressing applied. Administered Medications: 00:45 Drug: NS 0.9% 1000 ml Route: IV; Rate: 1000 ml; Site: right antecubital; jb4 01:28 Follow up: Response: No adverse reaction; IV Status: Completed infusion; IV Intake: jb4 800ml Intake: 01:28 IV: 800ml; Total: 800ml. jb4 Outcome: 01:08 Discharge ordered by . ma2 01:27 Discharged to home ambulatory. jb4 01:27 Condition: stable 01:27 Discharge instructions given to patient, Instructed on discharge instructions, follow up and referral plans. medication usage, Demonstrated understanding of instructions, follow-up care, medications, Prescriptions given X 3. 01:28 Patient left the ED. jb4 Signatures: Dispatcher [employer] Lalita Waldrop RN RN dm5 Carlo Leon, RN RN jb4 Maria Antonia Campos Mohammad, MD MD ma2
[2020-06-30 01:10] LABS: Urine Yeast FEW (NONE SEEN)
[2020-06-30 01:33] VITALS: TEMP 98.5
[2020-06-30 01:34] VITALS: BP 111/66; O2SAT 98
--- NOTE | 2020-06-30 17:52 | RAD REPORT ---
EXAM DESCRIPTION: CT - Stone Protocol - 06/30/2020 7:00 am CLINICAL HISTORY: The patient is 19 years old and is Female; PAIN TECHNIQUE: Axial computed tomography images of the abdomen and pelvis without intravenous contrast. Sagittal and coronal reformatted images were created and reviewed. This CT exam was performed usi ng one or more of the following dose reduction techniques: automated exposure control, adjustment o f the mA and/or kV according to patient size, and/or use of iterative reconstruction technique. DLP: 489 mGy*cm COMPARISON: CT abdomen and pelvis dated 05/23/2020. FINDINGS: LUNG BASES: Lung bases are clear. HEART: Visualized heart is normal. ABDOMEN: LIVER: Unremarkable. GALLBLADDER AND BILE DUCTS: Unremarkable. No calcified stones. No ductal dilation. PANCREAS: Unremarkable. No ductal dilation. SPLEEN: Unremarkable. No splenomegaly. ADRENALS: Unremarkable. No mass. KIDNEYS AND URETERS: 5 mm radiopaque stone at the left UVJ with mild hydronephrosis, hydroureter an d enlargement of the left kidney. STOMACH AND BOWEL: Unremarkable. No obstruction. No mucosal thickening. PELVIS: APPENDIX: The appendix is seen and is within normal limits. BLADDER: Bladder is decompressed. No stones. REPRODUCTIVE: Bilateral ovarian cysts measuring up to 2 cm on the left. ABDOMEN and PELVIS: INTRAPERITONEAL SPACE: Unremarkable. No free air. No significant fluid collection. BONES/JOINTS: No acute fracture. No dislocation. SOFT TISSUES: Unremarkable. VASCULATURE: Unremarkable. No abdominal aortic aneurysm. LYMPH NODES: Unremarkable. No enlarged lymph nodes. IMPRESSION: 1. 5 mm radiopaque stone at the left UVJ with mild hydronephrosis, hydroureter and enl argement of the left kidney. Correlate with urinalysis for superimposed infectious process. 2. Bilateral ovarian cysts measuring up to 2 cm on the left. No follow-up imaging is recommended. Reference: US recommendations based on Radiology 2010 Sep;256(3):943-54; CT/MR recommendations based on J Am Va Radiol 2013;10:675-681. Electronically signed by: Harshad Moore DO 06/30/2020 12:37 AM ICU RN Due to temporary technical issues with the PACS/Fluency reporting system, reports are being signed by the in house radiologists without review as a courtesy to insure prompt reporting. The interpreting radiologist is fully responsible for the content of the report.
== END 2020-06-30 01:28 | disposition home or self-care (01) ==
LOC: ER 23:21
DX: N20.9 Urinary calculus, unspecified (principal)
CPT/HCPCS: 87088; 85025; 87086; 80048; 36415; 81025; 80076; 81003; 81015; 83690; 76377; 74176; J7030; 96360; 99284